=== PATIENT | male | born 1980 | race Caucasian/White ===

== ENCOUNTER 2017-05-06 11:14 | Emergency (ER) | payer OTHER ==
[~2017-05-06] VITALS: Ht 177.8 cm; Wt 109.1 kg
[~2017-05-06 11:14] MED LIST: AMOX-366 PO; CEFT1VIA IV; KLO1T PO; MTH10T PO
[2017-05-06 11:28] VITALS: BP 147/87; PULSE 109; RESP 18; O2SAT 100
[2017-05-06] MEDS ORDERED: SERT100T9 PO (12:00)
[2017-05-06] MEDS ORDERED: HYDR4TAB PO (12:00)
[2017-05-06] MEDS ORDERED: KLO5T PO (12:00)
[2017-05-06] MEDS ORDERED: 0.9% Sodium Chloride 1,000 ML IV ONE (12:09)
[2017-05-06] MEDS ORDERED: Vancomycin Dose per Pharmacist XX ONE (12:10)
[2017-05-06] MEDS ORDERED: cefTRIAXone Inj 2,000 MG in Dextrose 5% Minibag Plus 50 ML IV ONE (12:10)
--- NOTE | 2017-05-06 12:18 | ED.REPORT ---
HPI-Rash / Abscess Date of Service May 06, 2017 ED Provider: Trav Lester PA-C Case is a 36-year-old male with a history of bilateral leg edema, MRSA presents with a chief complaint of an abscess on his right knee. Patient reports a three -day history of swelling, redness, pain, drainage from an abscess on the medial aspect of his left knee. Patient reports exposure to devil's club thorns. Admits tachycardia, which patient states is baseline for him. Denies fever, chills, abdominal pain, vomiting, malaise. Admits remote history of IV opiate drug use, states clean for 14 years. Denies diabetes, HIV. Nursing Notes Stated Complaint: LEFT LEG ABSCESS Chief Complaint: Skin Rash/Abscess Nursing Notes Reviewed: Yes Allergies: Coded Allergies: No Known Allergies (Verified Allergy, Mild, 05/06/17) Scheduled Clonazepam (Clonazepam) 0.5 Mg Tablet 0.5 MG PO DAILY Furosemide (Furosemide) 20 Mg Tab 20 MG PO DAILY Methadone (Methadone) 10 Mg Tab 50 MG PO BID Potassium Chloride (Potassium Chloride) 10 Meq Tab.er.prt 10 MEQ PO DAILY TAKE WITH FOOD Sertraline HCl (Sertraline) 100 Mg Tablet 100 MG PO DAILY Scheduled PRN Hydromorphone (Hydromorphone) 4 Mg Tablet 4 MG PO TID PRN PRN For Pain General Time Seen by MD: 11:48 Chief Complaint Abscess Past Medical History Past Medical History Admit for cellulitis 2013 History of IVDA 10 years ago History of MRSA cellulitis in 2002 History of possible seizure disorder, details unclear history of depression and anxiety History of agoraphobia PTSD Past Surgical History Right lateral microdiscectomy in 2011 for back pain Knee surgery Reports: Appendectomy Smoking History Former Smoker Social History Alcohol Use: 1-3 per week Drug Use: In recovery Ambulatory Status Independent Review of Systems General: Denies fever, chills, malaise. Respiratory: Denies dyspnea, cough, shortness of breath, wheezing. Cardiovascular: Denies chest pain, palpitations. Gastrointestinal: Denies vomiting, diarrhea, abdominal pain. Otherwise as noted in HPI. Physical Exam General: Well appearing, well developed, well nourished, no acute distress. Left leg: Notable redness, swelling to the proximal thigh. 4 cm area of increased swelling, fluctuance or drainage on the medial aspect of the anterior knee. 3+ pitting edema. DP pulses 2+. PT pulse not appreciated. Inguinal lymphadenopathy noted. Right leg: Silvino edema in lower leg and ankle. Diameter significantly less than left. DP pulses 2+. PT pulse not appreciated. Head: Atraumatic, normocephalic. Eyes: No scleral icterus or injection. No discharge. Vision grossly intact. ENT: Voice clear, hearing grossly intact. Respiratory: Regular rate and rhythm. Breath sounds present, clear to auscultation and equal bilaterally. No respiratory distress. No increased work of breathing, speaks in complete sentences. Cardiovascular: Regular rate and rhythm, without murmur, gallop or rub despite careful auscultation. Skin: Warm and dry. Neurological: Grossly nonfocal. Psychological: Alert and oriented. Speech appropriate, linear and logical. Behavior appropriate. Initial Vital Signs Vital Signs (First) Date Time Temp Pulse Resp B/P Pulse Ox O2 Delivery O2 Flow Rate FiO2 05/06/17 11:28 36.8 109 18 147/87 100 Room Air Initial VS: Vital signs abnormal (tachycardia, elevated blood pressure) Interpretation & Diagnostics Lab Results Interpretation Result Diagram: 05/06/17 1345 05/06/17 1345 Test 05/06/17 13:45 05/06/17 14:20 White Blood Count 14.3th/mm3 (3.8-10.1) Red Blood Count 4.08mil/mm3 (4.40-5.80) Hemoglobin 11.7g/dL (13.8-17.2) Hematocrit 36.1% (41.0-50.0) Mean Corpuscular Volume 88.5fL (81-100) Mean Corpuscular Hemoglobin 28.7pg (27.0-35.0) Mean Corpuscular Hemoglobin Concent 32.4% (32.0-37.0) Red Cell Distribution Width 12.8% (12.3-15.4) Platelet Count 249bil/L (150-400) Neutrophils (%) (Auto) 83.4% (40-74) Lymphocytes (%) (Auto) 7.9% (14-46) Monocytes (%) (Auto) 7.7% (4-12) Eosinophils (%) (Auto) 0.7% (0-5) Basophils (%) (Auto) 0.1% (0-3) Sodium Level 135mEq/L (134-144) Potassium Level 4.0mEq/L (3.5-5.2) Chloride Level 97mEq/L (97-108) Carbon Dioxide Level 26mmol/L (18-29) Blood Urea Nitrogen 13mg/dL (6-20) Creatinine 0.94mg/dL (0.76-1.27) Estimat Glomerular Filtration Rate 96mL/min (>59) Glucose Level 104mg/dL (60-99) Calcium Level 9.2mg/dL (8.5-10.1) Total Bilirubin 0.5mg/dL (0.0-1.2) Aspartate Amino Transf (AST/SGOT) 39U/L (0-50) Alanine Aminotransferase (ALT/SGPT) 25U/L (0-44) Alkaline Phosphatase 103U/L (25-150) Total Protein 7.4g/dL (6.4-8.4) Albumin 3.5g/dL (3.4-5.0) Lactic Acid Level 0.5mmol/L (0.4-2.0) US Soft Tissue/Musculoskeletal PROCEDURE: US VEINOUS LEG DUPLEX UNILATERAL, LEFT INDICATIONS: left leg swelling, abscess IMPRESSION: 1. No DVT in the left lower extremity. 2. A 5.3 x 3.1 x 4.0 cm complex, irregular subcutaneous collection medial to the knee consistent with abscess. 3. Mildly enlarged left inguinal lymph nodes are noted, most likely reactive. Exam Performed by: Radiologist Procedures Incision & Drainage Abscess I & D Abscess: Left medial anterior knee Time: 14:12 Procedure Performed by: Allied health pract Consent / Setup / Site Prep: Consent from patient, Hand hygiene observed Skin Preparation Agent: Hibiclens - Chlorhexidine Local Anesthesia: Lidocaine w epi 1%, 27g needle Incised Abscess with Scalpel: #11 Pus Drained: Large, Purulent discharge, Bloody Irrigation: No Post-Procedure / Complications: Packing placed, Culture obtained, Gram stain ordered, Dressing applied, No complications, Condition improved, Tolerated procedure well, Patient stable Discharge & Departure Impression: Primary Impression: Abscess Additional Impression: Cellulitis Site of cellulitis: extremity Site of cellulitis of extremity: lower extremity Laterality: left Qualified Code: L03.116 - Cellulitis of left lower limb Disposition: Home Discharge Condition All VS Reviewed: Yes Condition: Stable Patient Instructions: Abscess Incision and Drainage (DC) Additional Instructions: Evaluation for left knee pain and leg swelling in the emergency department includes history, physical examination, blood tests and ultrasound. Ultrasound reveals an abscess on the left knee and is reassuring that there is no dangerous blood clot. Blood tests are reassuring that she did not have a dangerous systemic infection. We have treated this department by draining the abscess and giving you IV antibiotics. While it is our preference that you remain in the hospital treat this, we understand that you have responsibilities to attend to. You can be discharged to home, but please return to the emergency department tomorrow for reassessment and further antibiotic treatment. Please keep the wound covered and dry until then. I will write you a prescription for furosemide your request. I will also give you a prescription for supplemental potassium which should be taken with furosemide. Please establish care with your primary care provider to follow up. Return to the emergency department sooner for any new or worsening symptoms including increasing pain, swelling, discharge, cold sweats, nausea/vomiting, racing heart, feeling ill. Referrals: Marilou Hannah MD (PCP) EDSupervising Provider for APC: Huong Rosario MD Attending Statement Patient seen and examined with Mr. Lester. Significant left leg cellulitis with abscess just proximal/medial to the knee. Ultrasound showed contained abscess without significant deeper tissue infection. Abscess was drained and cultured. He was given 2 g of IV ceftriaxone. We did attempt vancomycin however IV infiltrated multiple times and was not completed Labs returned minimally elevated with no evidence of sepsis. Otherwise healthy 36-year-old gentleman sitting for discharge to home. We will ask him to return to the emergency department tomorrow for additional evaluation in anticipation of 2 additional grams of IV ceftriaxone at this point if significantly improved with transition to oral antibiotics copies to: Marilou Hannah MD, Seth PA-C May 06, 2017 12:18 Huong Rosario MD May 06, 2017 16:24
[2017-05-06] MEDS ORDERED: Vancomycin Inj 2,000 MG in 0.9% Sodium Chloride 500 ML IV ONE (12:50)
[2017-05-06 13:53] LABS: BASOPHILS % (AUTO) 0.1 % (0-3); EOSINOPHILS % (AUTO) 0.7 % (0-5); MONOCYTES % (AUTO) 7.7 % (4-12); Mean Corpuscular Hemoglobin 28.7 pg (27.0-35.0); Mean Corpuscular Volume 88.5 fL (81-100); NEUTROPHILS % (AUTO) 83.4 % (40-74); Platelet Count 249 bil/L (150-400)
--- NOTE | 2017-05-06 14:21 | DRSVH ---
PROCEDURE: US VEINOUS LEG DUPLEX UNILATERAL, LEFT INDICATIONS: left leg swelling, abscess TECHNIQUE: Real-time imaging, as well as color and pulse Doppler interrogation, were performed of the lower extr emity deep veins from the inguinal ligament to the popliteal fossa. COMPARISON: None. FINDINGS: The deep veins are normally compressible, and free of intraluminal thrombus. Color and pu lse Doppler demonstrate normal phasic intraluminal flow. There is normal augmentation response to di stal compression maneuver. There is a complex, irregular subcutaneous fluid collection in the medial aspect of the knee measurin g 5.3 x 3.1 x 4.0 cm, which demonstrates heterogeneous echogenicity with internal echo, consistent wi th an abscess. Mildly enlarged left inguinal lymph nodes are noted measuring up to 1.3 cm in short axis. IMPRESSION: 1. No DVT in the left lower extremity. 2. A 5.3 x 3.1 x 4.0 cm complex, irregular subcutaneous collection medial to the knee consistent with abscess. 3. Mildly enlarged left inguinal lymph nodes are noted, most likely reactive. Dictated by: Liana Lazcano M.D. on 05/06/2017 at 14:15 Approved by: Liana Lazcano M.D. on 05/06/2017 at 14:19
[2017-05-06] MEDS ORDERED: POTA10TA38 PO (16:27)
[2017-05-06] MEDS ORDERED: FUR20 PO (16:27)
[2017-05-06 16:32] VITALS: BP 138/80; PULSE 107; RESP 20; O2SAT 97
[2017-05-07] MEDS ORDERED: CLIN-78 PO (14:34)
== END 2017-05-06 16:33 | disposition home or self-care (01) ==
LOC: SED 11:14
DX: L02.416 Cutaneous abscess of left lower limb (principal); L03.116 Cellulitis of left lower limb; F32.9 Major depressive disorder, single episode, unspecified; F41.9 Anxiety disorder, unspecified; F43.10 Post-traumatic stress disorder, unspecified; Z87.891 Personal history of nicotine dependence; Z86.14 Personal history of Methicillin resistant Staphylococcus aureus infection
CPT/HCPCS: 10061; 36415; 80053; 83605; 85025; 87040; 87070; 87075; 87077; 87186; 87205; 93970; 96365; 96366; 96367; 96372; 99285; J0696; J1885; J3370; J7030; J7040

== ENCOUNTER 2017-05-07 12:52 | Emergency (ER) | payer OTHER ==
[~2017-05-07] VITALS: Ht 177.8 cm; Wt 109.1 kg
[~2017-05-07 12:52] MED LIST changes: -AMOX-366 PO; -CEFT1VIA IV; +FUR20 PO; +HYDR4TAB PO; -KLO1T PO; +KLO5T PO; +POTA10TA38 PO; +SERT100T9 PO
[2017-05-07 12:54] VITALS: BP 128/80; PULSE 113; RESP 17; O2SAT 100
[2017-05-07] MEDS ORDERED: Clindamycin 150 mg/mL 2 mL Inj IM ONE (13:55)
[2017-05-07] MEDS ORDERED: cefTRIAXone Inj 2,000 MG, Lidocaine PF 1% Inj 4.2 ML in Syringe 0 EACH IM ONE (13:55)
--- NOTE | 2017-05-07 14:09 | ED.REPORT ---
HPI-Rash / Abscess Date of Service May 07, 2017 ED Provider: Trav Lester PA-C Case is 36-year-old male presenting for a recheck of left leg incision and drainage as well as cellulitis. Patient was seen in this department yesterday and has abscess drained on his left knee. Treated with 2 g IV Rocephin and a partial dose of IV vancomycin. The patient's IV infiltrated several times and treatment with ankle myself was abandoned. The patient preferred to be discharged to home, with reevaluation today. Today the patient reports decreased pain in the left knee, slightly decreased redness and swelling. He does report significant purulent discharge over night, which required redressing the wound several times. He continues to deny fever, malaise, sweats , palpitations, abdominal pain, vomiting. Nursing Notes Stated Complaint: ANTIBIOTCS/VISUAL CHECK Chief Complaint: Skin Rash/Abscess Nursing Notes Reviewed: Yes Allergies: Coded Allergies: No Known Allergies (Verified Allergy, Mild, 05/07/17) Scheduled Clindamycin (Clindamycin) 300 Mg Capsule 300 MG PO QID Clonazepam (Clonazepam) 0.5 Mg Tablet 0.5 MG PO DAILY Furosemide (Furosemide) 20 Mg Tab 20 MG PO DAILY Methadone (Methadone) 10 Mg Tab 50 MG PO BID Potassium Chloride (Potassium Chloride) 10 Meq Tab.er.prt 10 MEQ PO DAILY TAKE WITH FOOD Sertraline HCl (Sertraline) 100 Mg Tablet 100 MG PO DAILY Scheduled PRN Hydromorphone (Hydromorphone) 4 Mg Tablet 4 MG PO TID PRN PRN For Pain General Time Seen by MD: 13:01 Chief Complaint Return visit, abscess Past Medical History Past Medical History Admit for cellulitis 2013 History of IVDA 10 years ago History of MRSA cellulitis in 2002 History of possible seizure disorder, details unclear history of depression and anxiety History of agoraphobia PTSD Past Surgical History Right lateral microdiscectomy in 2011 for back pain Knee surgery Reports: Appendectomy Smoking History Former Smoker Social History Alcohol Use: 1-3 per week Drug Use: In recovery Ambulatory Status Independent Review of Systems Negative unless stated otherwise in history of present illness Physical Exam General: Well appearing, well developed, well nourished, no acute distress. Left leg: Mid skin redness and swelling continues and left leg, though perhaps slightly reduced to my eye. Redness does not advance past demarcation established previously. Significant purulent discharge remains at I&D site, which gapes after packing is removed. DP pulse 2+, PT pulse not appreciated. Head: Atraumatic, normocephalic. Eyes: No scleral icterus or injection. No discharge. Vision grossly intact. ENT: Voice clear, hearing grossly intact. Respiratory: No respiratory distress, no increased work of breathing. Speaks in complete sentences. Skin: Warm and dry. Neurological: Grossly nonfocal. Psychological: alert and oriented. Speech appropriate, linear and logical. Behavior appropriate. Initial Vital Signs Vital Signs (First) Date Time Temp Pulse Resp B/P Pulse Ox O2 Delivery O2 Flow Rate FiO2 05/07/17 12:54 36.8 113 17 128/80 100 Room Air Initial VS: Vital signs abnormal (tachycardia) Re-Eval/Medical Decision Med Decision/Clinical Course Attending note: I saw and examined this patient with our physician assistant professor of philosophy. I did discuss with the patient that he has rather advanced signs of cellulitis, he continues to insist that he not be admitted. He does report interim improvement since yesterday. Recommend clindamycin and close follow-up as an outpatient. 36-year-old male seen by me in this department yesterday for cellulitis and abscess presents for reassessment and recheck of incision and drainage on left knee. Treated with IV ceftriaxone and a small amount of vancomycin, which was discontinued after IV failed. Patient continues to deny systemic symptoms, but admits to purulent discharge overnight requiring dressing changes. Patient reports improved range of motion of the left knee as well as reduced pain. Redness and swelling appears slightly better. Incision and drainage site continues to have purulent discharge, gapes when packing is removed. He does exhibit a mild tachycardia which is apparently his baseline. He is afebrile. I discussed the case with Dr. Lorin Pacheco, who presented with and examine the patient. The patient still does not wish to be admitted to the hospital, does not appear to be septic despite tachycardia. We feel he is safe to be discharged to home after treatment with IM Rocephin and clindamycin. Prescribed 300 mg clindamycin 4 times a day for the next 10 days and asked that the patient return to the emergency department on Thursday so that I can reevaluate him again. The patient has a primary care provider but has not officially become established yet. Provided emergency return precautions. Patient verbalized understanding of, and consent to, the plan. Discharge & Departure Impression: Primary Impression: Cellulitis of right leg Additional Impression: Encounter for recheck of abscess following incision and drainage Disposition: Home Discharge Condition All VS Reviewed: Yes Condition: Stable Additional Instructions: Evaluation of left leg cellulitis and reassessment of incision and drainage in the emergency department consists of history and physical examination. This appears to be improving, though slowly. We have further treated you with antibiotics in the emergency department. At this time you still did not wish to be admitted to the hospital, and your condition does not appear to have deteriorated since yesterday. We feel that it is reasonable to pursue outpatient treatment. I will write a prescription for clindamycin to be taken 4 times a day for the next 10 days. Please be sure to take every dose. Since you are not yet established a primary care provider, you can return to the emergency department on Thursday for a wound check. Return sooner for any new or worsening symptoms including fever, feeling ill, racing heart, sweating. Referrals: NOPCP (PCP) EDSupervising Provider for APC: Klaus Murphy DO Attending Statement I have seen and examined the patient. I have reviewed the chart and agree with the documentation as recorded by the Midlevel Provider, including assessment, treatment plan, and disposition. Findings from my exam are included in documentation above. Trav Lester PA-C May 07, 2017 14:09 Klaus Murphy DO May 07, 2017 15:28
[2017-05-07] MEDS ORDERED: cefTRIAXone 2,000 mg Inj IM ONE (14:10)
[2017-05-07] MEDS ORDERED: CLIN-78 PO (14:34)
[2017-05-07 14:46] VITALS: BP 122/82; PULSE 100; RESP 20; O2SAT 97
== END 2017-05-07 14:46 | disposition home or self-care (01) ==
LOC: SED 12:52
DX: L03.116 Cellulitis of left lower limb (principal); F43.10 Post-traumatic stress disorder, unspecified; Z87.891 Personal history of nicotine dependence
CPT/HCPCS: 96372; 99284; J0696